=== PATIENT | female | born 1955 | race Caucasian/White ===

== ENCOUNTER 2016-09-07 14:13 | Outpatient (CLI) | payer BC ==
--- NOTE | 2016-09-07 16:48 | DIAGNOSTIC IMAGING REPORT ---
PROCEDURE: MG BILATERAL SCREENING W/CAD INDICATION: Screening, personal history of benign bilateral lumpectomy. TECHNIQUE: Standard CC and MLO views bilaterally. Computer aided detection was used. COMPARISON: 12/19/2012, 01/18/2011, 01/12/2010 FINDINGS: Mildly dense fibroglandular tissue is present bilaterally. No developing densities, areas of architectural distortion, or suspicious microcalcifications. IMPRESSION: 1. Stable mammograms without radiographic evidence of malignancy. RESULT CODE: 1- Negative. A. A negative report should not delay biopsy if a dominant or clinically suspicious mass is present. 10-15% of cancers are not identified by x-ray. B. A negative report may reinforce clinical impression. C. Adenosis and dense breasts may obscure an underlying neoplasm. D. False positive reports average 6-10%. E.. A yearly screening mammogram is recommended. A reminder letter will be scheduled.
--- NOTE | 2016-09-08 12:39 | DIAGNOSTIC IMAGING REPORT ---
REFERRING PHYSICIAN/PROVIDER: Isabel Wise MD CONSULTING WALLCOVERING TEXTURER: Bry Vargas MD PROCEDURE: 2D echo, M-mode and complete color and flow Doppler interrogation TECHNICAL QUALITY: Good INDICATION: ABNORMAL EKG, CHEST PAIN, HTN INTERPRETATIONS: CHAMBERS: LEFT ATRIUM: Normal left atrial size. LEFT VENTRICLE: Concentric left ventricular hypertrophy. Normal left ventricular size and systolic function, EF 66%. No wall motion abnormalities. Grade I diastolic dysfunction with normal filling pressures. RIGHT ATRIUM: Normal right atrial size. RIGHT VENTRICLE: Normal right ventricular size and systolic function. VALVES: All valves nonrheumatic unless otherwise indicated. AORTIC VALVE: Trileaflet aortic valve. No aortic stenosis. No aortic regurgitation. MITRAL VALVE: Trace mitral regurgitation. No mitral stenosis. TRICUSPID VALVE: Mild tricuspid regurgitation. RVSP 23 mmHg. PULMONIC VALVE: Mild pulmonic regurgitation. MISCELLANEOUS: No pericardial effusion. HEMODYNAMICS: Normal size IVC with >50% inspiratory collapse. CVP is 3 mmHg. IMPRESSION: 1. Concentric left ventricular hypertrophy and normal left ventricular size and systolic function, EF 66%. No wall motion abnormalities. 2. Impaired relaxation consistent with grade I diastolic dysfunction. 3. No hemodynamically significant valvular abnormalities. 4. Normal right ventricular size and systolic function. 5. Estimated pulmonary artery systolic pressure is 23 mmHg. 6. No pericardial effusion.
== END 2016-09-07 23:00 ==
LOC: US SRH 14:13
DX: I51.7 Cardiomegaly (principal); I10 Essential (primary) hypertension; R07.89 Other chest pain; R94.31 Abnormal electrocardiogram [ECG] [EKG]; Z98.890 Other specified postprocedural states